=== PATIENT | male | born 1960 | race Caucasian/White ===

== ENCOUNTER 2022-02-23 11:50 | Emergency (ER) | payer MEDICAID ==
[~2022-02-23] VITALS: Ht 157.5 cm; Wt 61.0 kg
[~2022-02-23 11:50] MED LIST: DEXA6TAB MT; GLIP5TAB12 MT; METF-416 MT
[2022-02-23] MEDS ORDERED: IBUPROFEN 400MG TABLET PO ONE (12:15)
[2022-02-23] MEDS ORDERED: ACETAMINOPHEN 325MG TABLET PO ONE (12:15)
[2022-02-23 14:49] VITALS: BP 152/87
== END 2022-02-23 14:53 | disposition home or self-care (01) ==
LOC: ER 11:50
DX: M25.551 Pain in right hip (principal); M79.671 Pain in right foot; R20.0 Anesthesia of skin; E11.9 Type 2 diabetes mellitus without complications; R20.2 Paresthesia of skin
CPT/HCPCS: 73502; 99283

== ENCOUNTER 2024-02-09 15:07 | Emergency (ER) | payer MEDICAID ==
[~2024-02-09] VITALS: Ht 160 cm; Wt 69.0 kg
[~2024-02-09 15:07] MED LIST changes: -GLIP5TAB12 MT; +GLIP5TAB22 MT
[2024-02-09 15:33] VITALS: O2SAT 100
[2024-02-09] MEDS ORDERED: IBUP-2028 MT (17:52)
[2024-02-09] MEDS ORDERED: TOPUD PO (17:52)
[2024-02-09 18:31] VITALS: BP 138/74; PULSE 80; RESP 16; TEMP 98.5
== END 2024-02-09 18:20 | disposition home or self-care (01) ==
LOC: ER 15:07
DX: S62.346A Nondisplaced fracture of base of fifth metacarpal bone, right hand, initial encounter for closed fracture (principal); X58.XXXA Exposure to other specified factors, initial encounter; Y93.89 Activity, other specified; Y92.89 Other specified places as the place of occurrence of the external cause; Y99.8 Other external cause status
CPT/HCPCS: 73130; 99283